=== PATIENT | female | born 1935 | race Hispanic/Latino ===

== ENCOUNTER 2021-09-29 16:18 | Emergency (ER) | payer OTHER ==
[~2021-09-29] VITALS: Ht 152.4 cm; Wt 61.7 kg
[~2021-09-29 16:18] MED LIST: CREON DR 24,001 EACH PO; FLAGYL500 MG PO; LOSARTAN POTASS25 MG PO; NORCO 5-325 TA1 EACH PO; PROVENTIL HFA6.7 GM; REGLAN5 MG PO; SENNA-S TABLET1 EA PO; TIROSINT75 MCG PO; Z LOFIBRA PO; Z REQUIP PO; Z.0.LISINOPRIL40 MG PO; Z.0.PRILOSEC20 MG PO; Z.0.VERAPAMIL ER240 PO; Z.0.ZOCOR40 MG PO
[2021-09-29] MEDS ORDERED: KETOROLAC TROMETHAMINE 30 MG/ML VIAL IM STA (17:20)
[2021-09-29] MEDS ORDERED: KETOROLAC TROMETHAMINE 30 MG/ML VIAL ONE (17:33)
== END 2021-09-29 18:02 | disposition home or self-care (01) ==
LOC: ER 17:31
DX: R10.32 Left lower quadrant pain (principal); M54.42 Lumbago with sciatica, left side; I10 Essential (primary) hypertension; E78.5 Hyperlipidemia, unspecified; Z85.89 Personal history of malignant neoplasm of other organs and systems
CPT/HCPCS: 99282; J1885

== ENCOUNTER 2023-03-30 13:22 | Inpatient (IN) | payer MEDICARE ==
[~2023-03-30] VITALS: Ht 152.4 cm; Wt 61.7 kg
[2023-03-30] MEDS ORDERED: ATORVASTATIN CA20 MG PO (13:47)
[2023-03-30] MEDS ORDERED: TEMAZEPAM15 MG PO (13:47)
[2023-03-30] MEDS ORDERED: MELOXICAM7.5 MG PO (13:47)
[2023-03-30] MEDS ORDERED: CARVEDILOL12.5 MG PO (13:47)
[2023-03-30] MEDS ORDERED: CLONIDINE HCL0.1 MG PO (13:47)
[2023-03-30] MEDS ORDERED: PRAMIPEXOLE DIHY1 MG PO (13:47)
[2023-03-30] MEDS ORDERED: BENICAR20 MG PO (13:47)
[2023-03-30 14:24] LABS: BASOPHILS % 0.3 % (0.0-1.0); EOSINOPHILS # (AUTO) 0.2 (0.0-0.4); EOSINOPHILS % 2.3 % (0.0-6.0); HEMATOCRIT 38.9 % (34.2-44.1); HEMOGLOBIN 12.4 g/dL (12.0-16.0); LYMPHOCYTES # (AUTO) 1.5 (1.0-3.2); LYMPHOCYTES % 19.8 % (18.0-39.1); MEAN CORPUSCULAR HGB CONC 31.9 g/dL (31-35); MEAN CORPUSCULAR VOLUME 94.2 fL (81-99); MONOCYTES # (AUTO) 0.6 (0.2-0.8); MONOCYTES % 7.8 % (4.4-11.3); NEUTROPHILS # (AUTO) 5.4 (2.1-6.9); NEUTROPHILS % 69.5 % (38.7-80.0); PLATELET COUNT 169 x10e3/uL (140-360); RED BLOOD COUNT 4.13 x10e6/uL (3.6-5.1); RED CELL DISTRIBUTION WIDTH 13.5 % (11.7-14.4)
[2023-03-30 14:49] LABS: CREATINE KINASE 61 IU/L (29-168)
[2023-03-30 15:18] LABS: ANION GAP 14.6 mmol/L (8-16); CALCIUM 9.9 mg/dL (8.4-10.2); CREATININE, SERUM 0.74 mg/dL (0.57-1.11); POTASSIUM 4.6 mmol/L (3.5-5.1)
[2023-03-30 15:24] LABS: CLARITY,URINE SL CLOUDY (CLEAR); COLOR,URINE YELLOW (YELLOW); KETONES,URINE NEGATIVE (NEGATIVE); LEUKOCYTE ESTERASE ,URINE TRACE (NEGATIVE); NITRITE,URINE NEGATIVE (NEGATIVE); PROTEIN,URINE DIPSTICK 1+ (NEGATIVE); URINE UROBILINOGEN 0.2 mg/dL (0.2 - 1)
[2023-03-30] MEDS ORDERED: IOPAMIDOL 370 MG/ML 100 ML INFUS..BTL INJ ONE (15:30)
[2023-03-30 15:34] LABS: EPITHELIAL CELLS,URINE FEW /LPF; RBC,URINE 0-5 /HPF (0-5)
[2023-03-30] MEDS ORDERED: KETOROLAC TROMETHAMINE 30 MG/ML VIAL IV STA (15:52)
[2023-03-30] MEDS ORDERED: ACETAMINOPHEN 325 MG TAB PO ONE (16:30)
[2023-03-30] MEDS ORDERED: ASPIRIN 81 MG CHEW TAB PO STA (17:56)
[2023-03-30] MEDS ORDERED: SODIUM CHLORIDE FLUSH 10 ML SYR INJ PRN (18:00)
[2023-03-30] MEDS ORDERED: NITROGLYCERIN 0.4 MG SUBL SL PRN (18:00)
[2023-03-30] MEDS ORDERED: ENOXAPARIN SODIUM INJ 100 MG/ML SYR SC SCH (18:00)
[2023-03-30] MEDS ORDERED: NITROGLYCERIN 2% OINT 1 GM PKT TOP ONE (18:00)
[2023-03-30 18:25] VITALS: PULSE 56; RESP 18; O2SAT 100
[2023-03-30] MEDS: ENOXAPARIN SOD INJ 60 MG/0.6 ML SYR SC SCH (18:28)
[2023-03-30 20:00] VITALS: BP 145/54; PULSE 53; RESP 17; TEMP 97.8; O2SAT 97
[2023-03-30 21:22] LABS: CREATINE KINASE MB 0.7 ng/mL (0-5.0)
[2023-03-30 21:30] VITALS: BP 145/54; PULSE 53; RESP 17; TEMP 97.8; O2SAT 97
[2023-03-30 23:12] VITALS: PULSE 64; RESP 18; O2SAT 94
[2023-03-31] VITALS (8 sets, daily range): BP systolic 136–186; BP diastolic 46–80; PULSE 50–56; RESP 16–18; TEMP 97.3–97.9; O2SAT 93–100
[2023-03-31] MEDS: ENOXAPARIN SOD INJ 60 MG/0.6 ML SYR SC SCH ×2 (05:56→16:03)
[2023-03-31 06:27] LABS: CREATINE KINASE 42 IU/L (29-168)
[2023-03-31 06:58] LABS: CHOLESTEROL 195 MD/DL (0-199); HDL CHOLESTEROL 28 MG/DL (40-60); TRIGLYCERIDES 621 MG/DL (0-149)
[2023-03-31] MEDS ORDERED: SIMETHICONE 80 MG CHEW PO PRN (07:45)
[2023-03-31] MEDS ORDERED: ONDANSETRON HCL INJ 2MG/ML 2ML 2 MG/ML VIAL IV PRN (07:45)
[2023-03-31] MEDS ORDERED: DOCUSATE SODIUM 100 MG CAP PO PRN (07:45)
[2023-03-31] MEDS ORDERED: ACETAMINOPHEN 325 MG TAB PO PRN (07:45)
[2023-03-31] MEDS ORDERED: ASPIRIN 325 MG TAB EC PO SCH (09:00)
[2023-03-31] MEDS: OLMESARTAN 20 MG TAB PO SCH (09:42)
[2023-03-31] MEDS: LEVOTHYROXINE SODIUM 75 MCG TAB PO SCH (09:42)
[2023-03-31] MEDS: ASPIRIN 81 MG ENTERIC COATED PO SCH (09:43)
[2023-03-31] MEDS: CARVEDILOL 12.5 MG TAB PO SCH ×2 (09:43→16:03)
[2023-03-31] MEDS: HYDRALAZINE HCL 25 MG TAB PO SCH ×2 (12:48→21:28)
[2023-03-31] MEDS: FAMOTIDINE 20 MG TAB PO SCH (16:03)
[2023-03-31] MEDS ORDERED: HYDRALAZINE HCL 25 MG TAB PO ONE (17:00)
[2023-03-31] MEDS ORDERED: ATORVASTATIN 40 MG TAB PO SCH (21:00)
[2023-03-31] MEDS: TEMAZEPAM 15 MG CAP PO SCH (21:26)
[2023-03-31] MEDS: PRAMIPEXOLE DIHYDROCHLORIDE 1 MG TAB PO SCH (21:26)
[2023-03-31] MEDS: ATORVASTATIN 40 MG TAB PO SCH (21:27)
[2023-03-31] MEDS ORDERED: HYDRALAZINE HCL 25 MG TAB PO SCH (22:00)
[2023-04-01] VITALS (7 sets, daily range): BP systolic 161–181; BP diastolic 48–76; PULSE 50–57; RESP 18–19; TEMP 97.1–98; O2SAT 96–99
[2023-04-01] MEDS: HYDRALAZINE HCL 25 MG TAB PO SCH ×3 (05:45→21:30)
[2023-04-01] MEDS: ENOXAPARIN SOD INJ 60 MG/0.6 ML SYR SC SCH ×2 (05:45→17:59)
[2023-04-01] MEDS: FAMOTIDINE 20 MG TAB PO SCH ×2 (07:30→17:59)
[2023-04-01] MEDS: OLMESARTAN 20 MG TAB PO SCH (09:00)
[2023-04-01] MEDS: ASPIRIN 81 MG ENTERIC COATED PO SCH (09:00)
[2023-04-01] MEDS: FENOFIBRATE 145 MG TAB PO SCH (09:00)
[2023-04-01] MEDS: LEVOTHYROXINE SODIUM 75 MCG TAB PO SCH (09:00)
[2023-04-01] MEDS: CARVEDILOL 12.5 MG TAB PO SCH ×2 (09:00→18:00)
[2023-04-01] MEDS: AMLODIPINE BESYLATE 5 MG TAB PO SCH (10:30)
[2023-04-01] MEDS ORDERED: REGADENOSON 0.4 MG/5 ML SYR IV ONE (11:16)
[2023-04-01] MEDS ORDERED: ASPIRIN EC81 MG PO (16:42)
[2023-04-01] MEDS ORDERED: FENOFIBRATE145 MG PO (16:42)
[2023-04-01] MEDS ORDERED: HYDRALAZINE HCL25 MG PO (16:42)
[2023-04-01] MEDS: PRAMIPEXOLE DIHYDROCHLORIDE 1 MG TAB PO SCH (20:26)
[2023-04-01] MEDS: ATORVASTATIN 40 MG TAB PO SCH (20:27)
[2023-04-01] MEDS: TEMAZEPAM 15 MG CAP PO SCH (21:00)
[2023-04-02 01:29] VITALS: BP 166/54; PULSE 53; RESP 16; TEMP 98.5; O2SAT 97
[2023-04-02 04:48] VITALS: BP 158/43; PULSE 53; RESP 16; TEMP 98.1; O2SAT 98
[2023-04-02] MEDS: ENOXAPARIN SOD INJ 60 MG/0.6 ML SYR SC SCH (06:01)
[2023-04-02] MEDS: HYDRALAZINE HCL 25 MG TAB PO SCH ×2 (06:02→14:29)
[2023-04-02 08:11] VITALS: BP 136/60; PULSE 60; RESP 20; TEMP 97.8; O2SAT 96
[2023-04-02] MEDS: FAMOTIDINE 20 MG TAB PO SCH (08:13)
[2023-04-02] MEDS: ASPIRIN 81 MG ENTERIC COATED PO SCH (08:13)
[2023-04-02] MEDS: AMLODIPINE BESYLATE 5 MG TAB PO SCH (08:14)
[2023-04-02] MEDS: FENOFIBRATE 145 MG TAB PO SCH (08:14)
[2023-04-02] MEDS: LEVOTHYROXINE SODIUM 75 MCG TAB PO SCH (08:14)
[2023-04-02] MEDS: CARVEDILOL 12.5 MG TAB PO SCH (08:14)
[2023-04-02] MEDS: OLMESARTAN 20 MG TAB PO SCH (08:15)
[2023-04-02 08:20] VITALS: BP 136/60; PULSE 60; RESP 20; TEMP 97.8; O2SAT 96
[2023-04-02] MEDS ORDERED: ONDANSETRON HCL 4 MG ORAL DISINTEGRATING TAB PO PRN (11:30)
[2023-04-02] MEDS ORDERED: HYDRALAZINE HCL50 MG PO (11:58)
[2023-04-02] MEDS ORDERED: ELIQUIS2.5 MG PO (12:01)
[2023-04-02 12:42] VITALS: BP 144/42; PULSE 56; RESP 18; TEMP 97.7; O2SAT 95
[2023-04-02 15:58] VITALS: BP 157/56; PULSE 61; RESP 18; TEMP 98; O2SAT 98
== END 2023-04-02 16:44 | disposition home or self-care (01) | DRG 313 ==
LOC: ER 13:28 → ERHOLD 18:04 → MED/SURG2 20:32 → OBSVTOIN 04-01 11:13
PROVIDERS: ADMIT Internal Medicine; ATTEND Internal Medicine
DX: R07.9 Chest pain, unspecified (principal); I27.82 Chronic pulmonary embolism; I10 Essential (primary) hypertension; R00.1 Bradycardia, unspecified; Z79.01 Long term (current) use of anticoagulants; E03.9 Hypothyroidism, unspecified; Z86.73 Personal history of transient ischemic attack (TIA), and cerebral infarction without residual deficits; Z85.3 Personal history of malignant neoplasm of breast
CPT/HCPCS: 0223U; 36415; 70450; 71260; 78452; 80048; 80061; 81001; 82550; 82553; 83880; 84484; 85025; 93005; 93017; 93306; 94799; 99285; A9502; G0378; J1650; J1885; Q9967

== ENCOUNTER → 2023-05-17 | Outpatient (CLI) | payer MEDICARE ==
[~2023-05-17] MED LIST changes: +ASPIRIN EC81 MG PO; +ATORVASTATIN CA20 MG PO; +BENICAR20 MG PO; +CARVEDILOL12.5 MG PO; +CLONIDINE HCL0.1 MG PO; +ELIQUIS2.5 MG PO; +FENOFIBRATE145 MG PO; +HYDRALAZINE HCL25 MG PO; +HYDRALAZINE HCL50 MG PO; +MELOXICAM7.5 MG PO; +PRAMIPEXOLE DIHY1 MG PO; +TEMAZEPAM15 MG PO
== END ==
LOC: CARD 08:26
PROVIDERS: ATTEND Nurse Practitioner Gerontology
DX: R60.0 Localized edema (principal); M79.662 Pain in left lower leg; M79.661 Pain in right lower leg
CPT/HCPCS: 93925; 93970

== ENCOUNTER 2023-06-01 13:27 | Observation (INO) | payer MEDICARE ==
[~2023-06-01] VITALS: Ht 152.4 cm; Wt 59.0 kg
[2023-06-01] MEDS ORDERED: SODIUM CHLORIDE FLUSH 10 ML SYR IV PRN (13:45)
[2023-06-01 14:08] LABS: BASOPHILS % 0.3 % (0.0-1.0); EOSINOPHILS # (AUTO) 0.1 (0.0-0.4); EOSINOPHILS % 1.5 % (0.0-6.0); HEMATOCRIT 35.1 % (34.2-44.1); HEMOGLOBIN 11.2 g/dL (12.0-16.0); LYMPHOCYTES # (AUTO) 1.1 (1.0-3.2); LYMPHOCYTES % 16.2 % (18.0-39.1); MEAN CORPUSCULAR HEMOGLOBIN 30.4 pg (28-32); MEAN CORPUSCULAR HGB CONC 31.9 g/dL (31-35); MEAN CORPUSCULAR VOLUME 95.4 fL (81-99); MONOCYTES # (AUTO) 0.5 (0.2-0.8); MONOCYTES % 7.7 % (4.4-11.3); NEUTROPHILS # (AUTO) 4.9 (2.1-6.9); PLATELET COUNT 195 x10e3/uL (140-360); RED BLOOD COUNT 3.68 x10e6/uL (3.6-5.1); RED CELL DISTRIBUTION WIDTH 13.1 % (11.7-14.4)
[2023-06-01 14:19] LABS: INR 1.16; PROTHROMBIN TIME 15.5 seconds (11.9-14.5)
[2023-06-01 14:20] LABS: PARTIAL THROMBOPLASTIN TIME 37.6 seconds (23.8-35.5)
[2023-06-01 14:50] LABS: ALANINE AMINOTRANSFERASE 13 IU/L (0-55); ALBUMIN 3.6 g/dL (3.5-5.0); ALKALINE PHOSPHATASE 57 IU/L (40-150); ANION GAP 14.4 mmol/L (8-16); BLOOD UREA NITROGEN 20 mg/dL (7-26); BUN/CREATININE RATIO 24 (6-25); CALCIUM 9.6 mg/dL (8.4-10.2); CARBON DIOXIDE 23 mmol/L (22-29); CHLORIDE 103 mmol/L (98-107); CREATININE, SERUM 0.84 mg/dL (0.57-1.11); GLUCOSE 181 mg/dL (74-118); POTASSIUM 4.4 mmol/L (3.5-5.1); SODIUM 136 mmol/L (136-145)
[2023-06-01] MEDS ORDERED: IOPAMIDOL 370 MG/ML 100 ML INFUS..BTL INJ ONE ×2 (15:10→15:13)
[2023-06-01] MEDS ORDERED: SODIUM CHLORIDE 0.9% 100 ML ONE (15:13)
[2023-06-01 17:56] LABS: CLARITY,URINE CLEAR (CLEAR); COLOR,URINE YELLOW (YELLOW); LEUKOCYTE ESTERASE ,URINE NEGATIVE (NEGATIVE)
[2023-06-01 17:57] LABS: KETONES,URINE NEGATIVE (NEGATIVE); NITRITE,URINE NEGATIVE (NEGATIVE); PROTEIN,URINE DIPSTICK NEGATIVE (NEGATIVE); URINE UROBILINOGEN 0.2 mg/dL (0.2 - 1)
[2023-06-01 18:13] LABS: BACTERIA,URINE RARE /HPF; RBC,URINE 0-5 /HPF (0-5)
[2023-06-01 18:14] LABS: EPITHELIAL CELLS,URINE RARE /LPF
[2023-06-01] MEDS ORDERED: ASPIRIN 81 MG CHEW TAB PO ONE (18:15)
[2023-06-01] MEDS ORDERED: ONDANSETRON HCL INJ 2MG/ML 2ML 2 MG/ML VIAL IV PRN (18:15)
[2023-06-01] MEDS ORDERED: SODIUM CHLORIDE FLUSH 10 ML SYR INJ PRN (18:15)
[2023-06-01] MEDS ORDERED: ELIQUIS5 MG PO (22:58)
[2023-06-01 23:08] VITALS: BP 151/50; PULSE 58; RESP 18; TEMP 98.3; O2SAT 97
[2023-06-01 23:10] VITALS: BP 151/50; PULSE 58; RESP 18; TEMP 98.3; O2SAT 97
[2023-06-01] MEDS ORDERED: PRAMIPEXOLE DIHYDROCHLORIDE 1 MG TAB PO ONE (23:30)
[2023-06-02] VITALS (7 sets, daily range): BP systolic 151–195; BP diastolic 47–66; PULSE 53–69; RESP 15–18; TEMP 97.4–98.9; O2SAT 95–99
[2023-06-02 06:09] LABS: BASOPHILS % 0.4 % (0.0-1.0); EOSINOPHILS # (AUTO) 0.1 (0.0-0.4); EOSINOPHILS % 2.1 % (0.0-6.0); HEMATOCRIT 34.3 % (34.2-44.1); HEMOGLOBIN 10.7 g/dL (12.0-16.0); LYMPHOCYTES # (AUTO) 1.4 (1.0-3.2); LYMPHOCYTES % 21.4 % (18.0-39.1); MEAN CORPUSCULAR HEMOGLOBIN 30.1 pg (28-32); MEAN CORPUSCULAR HGB CONC 31.2 g/dL (31-35); MEAN CORPUSCULAR VOLUME 96.3 fL (81-99); MONOCYTES # (AUTO) 0.7 (0.2-0.8); MONOCYTES % 10.5 % (4.4-11.3); NEUTROPHILS # (AUTO) 4.4 (2.1-6.9); NEUTROPHILS % 65.3 % (38.7-80.0); PLATELET COUNT 201 x10e3/uL (140-360); RED BLOOD COUNT 3.56 x10e6/uL (3.6-5.1); RED CELL DISTRIBUTION WIDTH 12.9 % (11.7-14.4)
[2023-06-02 06:35] LABS: ALBUMIN 3.5 g/dL (3.5-5.0); ALBUMIN/GLOBULIN RATIO 1.3 (0.8-2.0); CALCIUM 9.1 mg/dL (8.4-10.2); CREATININE, SERUM 0.7 mg/dL (0.57-1.11)
[2023-06-02] MEDS ORDERED: MELATONIN 3 MG TAB PO PRN (13:45)
[2023-06-02] MEDS ORDERED: SIMETHICONE 80 MG CHEW PO PRN (13:45)
[2023-06-02] MEDS ORDERED: DOCUSATE SODIUM 100 MG CAP PO PRN (13:45)
[2023-06-02 14:07] LABS: CHOL/HDL RATIO 4.2 (3.0-3.6)
[2023-06-02] MEDS ORDERED: HYDRALAZINE HCL 25 MG TAB PO SCH (14:30)
[2023-06-02] MEDS ORDERED: CARVEDILOL 12.5 MG TAB PO SCH (17:00)
[2023-06-02] MEDS ORDERED: APIXAB 2.5 MG TABLET PO SCH (17:00)
[2023-06-02] MEDS ORDERED: HYDRALAZINE HCL 20 MG/ML VIAL IV STA (18:36)
[2023-06-02] MEDS ORDERED: PLAVIX75 MG PO (18:39)
[2023-06-02] MEDS ORDERED: ATORVASTATIN CA40 MG PO (18:39)
[2023-06-02] MEDS ORDERED: HYDRALAZINE HC100 MG PO (18:46)
[2023-06-02] MEDS ORDERED: ATORVASTATIN 40 MG TAB PO SCH (21:00)
[2023-06-02] MEDS ORDERED: TEMAZEPAM 15 MG CAP PO SCH (21:00)
[2023-06-02] MEDS ORDERED: PRAMIPEXOLE DIHYDROCHLORIDE 1 MG TAB PO SCH (21:00)
[2023-06-03] MEDS ORDERED: LEVOTHYROXINE SODIUM 88 MCG TAB PO SCH (06:00)
[2023-06-03] MEDS ORDERED: FENOFIBRATE 145 MG TAB PO SCH (09:00)
[2023-06-03] MEDS ORDERED: OLMESARTAN 20 MG TAB PO SCH (09:00)
[2023-06-03] MEDS ORDERED: ASPIRIN 81 MG ENTERIC COATED PO SCH (09:00)
== END 2023-06-02 20:28 | disposition home or self-care (01) ==
LOC: ER 13:33 → ERHOLD 18:14 → MED/SURG 22:49
PROVIDERS: ADMIT Internal Medicine; ATTEND Internal Medicine
DX: G45.9 Transient cerebral ischemic attack, unspecified (principal); R29.810 Facial weakness; R47.81 Slurred speech; I65.23 Occlusion and stenosis of bilateral carotid arteries; I10 Essential (primary) hypertension; E78.5 Hyperlipidemia, unspecified; E03.9 Hypothyroidism, unspecified; M19.91 Primary osteoarthritis, unspecified site; Z20.822 Contact with and (suspected) exposure to COVID-19; Z86.711 Personal history of pulmonary embolism; Z79.01 Long term (current) use of anticoagulants; Z85.3 Personal history of malignant neoplasm of breast; Z90.12 Acquired absence of left breast and nipple
CPT/HCPCS: 36415 ×2; 70450; 70496; 70498; 70551; 71045; 80053 ×2; 80061; 81001; 83880; 84484; 85025 ×2; 85610; 85730; 93005; 94760; 99284; G0378 ×2; J0360; J7050; Q9967; U0002

== ENCOUNTER 2024-12-27 15:07 | Emergency (ER) | payer MEDICARE ==
[~2024-12-27] VITALS: Ht 152.4 cm; Wt 49.9 kg
[~2024-12-27 15:07] MED LIST changes: +ATORVASTATIN CA40 MG PO; +ELIQUIS5 MG PO; +HYDRALAZINE HC100 MG PO; +PLAVIX75 MG PO
[2024-12-27 15:34] VITALS: TEMP 97.6
[2024-12-27] MEDS ORDERED: EPINEPHRINE 2.25% INH NEBU SOL 0.5 ML VIAL ONE (16:43)
[2024-12-27 17:18] LABS: BASOPHILS % 0.5 % (0.0-1.0); EOSINOPHILS # (AUTO) 0.1 (0.0-0.4); EOSINOPHILS % 1.7 % (0.0-6.0); HEMATOCRIT 38.1 % (34.2-44.1); LYMPHOCYTES # (AUTO) 1.8 (1.0-3.2); MEAN CORPUSCULAR HEMOGLOBIN 29.4 pg (28-32); MEAN CORPUSCULAR HGB CONC 31.5 g/dL (31-35); MEAN CORPUSCULAR VOLUME 93.4 fL (81-99); MONOCYTES # (AUTO) 0.6 (0.2-0.8); MONOCYTES % 7.7 % (4.4-11.3); NEUTROPHILS # (AUTO) 5.4 (2.1-6.9); NEUTROPHILS % 67.9 % (38.7-80.0); PLATELET COUNT 195 x10e3/uL (140-360); RED BLOOD COUNT 4.08 x10e6/uL (3.6-5.1); RED CELL DISTRIBUTION WIDTH 13.3 % (11.7-14.4); WHITE BLOOD COUNT 8.03 x10e3/uL (4.8-10.8)
[2024-12-27 17:40] LABS: ALBUMIN 4.1 g/dL (3.5-5.0); ANION GAP 14.5 mmol/L (8-16); BILIRUBIN,TOTAL 0.4 mg/dL (0.2-1.2); CALCIUM 10.2 mg/dL (8.4-10.2); CREATININE, SERUM 0.83 mg/dL (0.57-1.11); POTASSIUM 4.5 mmol/L (3.5-5.1); TOTAL PROTEIN 8.1 g/dL (6.5-8.1)
[2024-12-27] MEDS: Morphine 4mg INJECTION 4 MG/ML INJ IV ONE (17:43)
[2024-12-27 18:25] VITALS: PULSE 68
[2024-12-27] MEDS ORDERED: IOPAMIDOL 370 MG/ML 100 ML INFUS..BTL INJ ONE (18:36)
[2024-12-27 20:37] LABS: CLARITY,URINE CLEAR (CLEAR); COLOR,URINE YELLOW (YELLOW); GLUCOSE, URINE NEGATIVE (NEGATIVE); KETONES,URINE NEGATIVE (NEGATIVE); LEUKOCYTE ESTERASE ,URINE 1+ (NEGATIVE); NITRITE,URINE NEGATIVE (NEGATIVE); PH,URINE 7 (5 - 7); PROTEIN,URINE DIPSTICK 1+ (NEGATIVE); URINE UROBILINOGEN 0.2 mg/dL (0.2 - 1)
[2024-12-27 20:38] LABS: BILIRUBIN,URINE NEGATIVE (NEGATIVE)
[2024-12-27] MEDS: IBUPROFEN 400 MG TAB PO ONE (20:51)
[2024-12-27 21:13] LABS: BACTERIA,URINE MODERATE /HPF; EPITHELIAL CELLS,URINE MODERATE /LPF; RENAL EPITHELIAL CELLS,URINE FEW; TRANSITIONAL EPI CELLS,URINE FEW; WBC,URINE (MAN) >50 /HPF (0-5)
[2024-12-27] MEDS ORDERED: CEPHALEXIN500 MG PO (21:16)
[2024-12-27 21:40] VITALS: PULSE 59; RESP 20; O2SAT 99
== END 2024-12-27 21:45 | disposition home or self-care (01) ==
LOC: ER 15:26
DX: M25.552 Pain in left hip (principal); M54.32 Sciatica, left side; N93.8 Other specified abnormal uterine and vaginal bleeding; I10 Essential (primary) hypertension; E78.5 Hyperlipidemia, unspecified; Z85.3 Personal history of malignant neoplasm of breast
CPT/HCPCS: 36415; 74177; 80053; 81001; 85025; 99284; J2270; Q9967